=== PATIENT | female | born 1960 | race Two or more races ===

== ENCOUNTER 2022-02-13 12:10 | Emergency (ER) | payer MEDICARE ==
[~2022-02-13] VITALS: Ht 162.6 cm; Wt 86.0 kg
[2022-02-13 12:26] VITALS: BP 108/75
--- NOTE | 2022-02-13 13:02 | PHYS DOC ---
Past History Past Medical History: CAD, CHF, Diabetes, Hypertension, UTI Additional Past Medical Histor: Prinzmetal angina (RAYMOND PEREIRA) Past Surgical History: Coronary Bypass Surgery (RAYMOND PEREIRA) Alcohol Use: None (RAYMOND PEREIRA) General Adult EDM: Chief Complaint: PAIN ON URINATION HPI: HPI: Patient is a 61 year old diabetic female who presents with known UTI and vaginal itching. Patient states she is currently undergoing treatment with Cipro for UTI. She reports she has UTIs often, though she is asymptomatic. Patient denies dysuria, hematuria, polyuria, increased urinary frequency. She states that after she uses the bathroom, she has an itching sensation. She has not been treated with antifungals at this point. Patient reports that she has diagnosed with CHF and Prinzmetal angina, both of which are stable. She did notice that her weight was slightly higher today, so she took an additional water pill under advisement of her wan support specialist. Patient states she has been in good communication with her wan support specialist and has no cardiac concerns today. (RAYMOND PEREIRA) Review of Systems: Review of Systems: ROS negative or noncontributory except as mentioned in HPI. (RAYMOND PEREIRA) Current Medications: Current Meds: Current Medications Medications (Trade) Dose Ordered Sig/Anaya Route PRN Reason Start Time Stop Time Status Last Admin Dose Admin Acetaminophen (Tylenol) 1,000 mg 1X ONCE PO 02/13/22 13:15 02/13/22 13:16 DC 02/13/22 13:13 (RAYMOND PEREIRA) Allergies: Allergies: Allergies Coded Allergies Type Severity Reaction Last Updated Verified Iodinated Contrast Media Allergy Unknown 02/13/22 Yes metformin Allergy Unknown 02/13/22 Yes metronidazole Allergy Unknown 02/13/22 Yes morphine Allergy Unknown 02/13/22 Yes oxycodone Allergy Unknown 02/13/22 Yes (RAYMOND PEREIRA) Physical Exam: PE: Constitutional: Well developed, well nourished, no acute distress, non-toxic appearance. HENT: Normocephalic, atraumatic, bilateral external ears normal, nose normal. Eyes: EOMI, conjunctiva normal, no discharge. Neck: Normal range of motion, no stridor. Skin: Warm, dry, no erythema, no rash. Back: No step-off, no tenderness, no CVA tenderness. Extremities: No tenderness, no cyanosis, no clubbing, ROM intact, no edema. Neurologic: Alert and oriented x4, no focal deficits noted. (RAYMOND PEREIRA) Current Patient Data: Labs: Laboratory Tests Test 02/13/22 12:53 Urine Collection Type Unknown Urine Color Yellow Urine Clarity Hazy Urine pH 7.0 Urine Specific [place] 1.015 Urine Protein Neg (NEG-TRACE) Urine Glucose (UA) >=1000 mg/dL (NEG) Urine Ketones (Stick) Neg mg/dL (NEG) Urine Blood Neg (NEG) Urine Nitrite Neg (NEG) Urine Bilirubin Neg (NEG) Urine Urobilinogen Dipstick 0.2 mg/dL (0.2 mg/dL) Urine Leukocyte Esterase Trace (NEG) Urine RBC 3-5 /HPF (0-2) Urine WBC 20-40 /HPF (0-4) Urine Squamous Epithelial Cells Many /LPF Urine Bacteria 0 /HPF (0-FEW) Urine Yeast Present /HPF Vital Signs: Vital Signs Date Time Temp Pulse Resp B/P (MAP) Pulse Ox O2 Delivery O2 Flow Rate FiO2 02/13/22 12:26 98.5 87 16 108/75 (86) 99 Room Air (RAYMOND PEREIRA) Heart Score: C/O Chest Pain: N/A (RAYMOND PEREIRA) Course & Med Decision Making: Course & Med Decision Making Pertinent Labs and Imaging studies reviewed. (See chart for details) (RAYMOND PEREIRA) Dragon Disclaimer: Dragon Disclaimer: This electronic medical record was generated, in whole or in part, using a voice recognition dictation system. (RAYMOND PEREIRA) Attending Co-Sign The patient was seen and interviewed as well as examined at the bedside. The chart was reviewed. The case was discussed. Agree with the plan of care. (STANLEY FLOREZ DO) Departure Departure: Impression: Primary Impression: Infection due to yeast Additional Impression: Hx: UTI (urinary tract infection) Disposition: HOME / SELF CARE / HOMELESS Condition: STABLE Referrals: ADIN HERRERA MD (PCP) Patient Instructions: How to Avoid Diabetes Problems, Urinary Tract Infection, [id number] Additional Instructions: EMERGENCY DEPARTMENT GENERAL DISCHARGE INSTRUCTIONS Thank you for coming to [facility] (ED) today and trusting us with you care. We trust that you had a positive experience in our Emergency Department. If you wish to speak to the department management, you may call the director at [phone]. YOUR FOLLOW UP INSTRUCTIONS ARE FOLLOWS: 1. Follow up with your primary care doctor. If you do not have a primary doc tor, please ask for a resource list of physicians or clinics that may be able to assist you with follow up care. 2. The emergency provider has interpreted your imaging studies, if any were ordered. The radiology reimbursement specialist also reviewed them. If there is a change in the findings, you will be notified in 48 hours when at all possible. 3. If a lab test or culture has been done, your results will be reviewed and you will be notified if you need a change in treatment. 4. Follow instructions verbalized to you and refer to the printouts if needed. ADDITIONAL INSTRUCTIONS AND INFORMATION: 1. Your care today has been supervised by a physician who is specially trained in emergency care. Many problems require more than one evaluation for a complete diagnosis and treatment. We recommend that you schedule your follow up appointment as recommended to ensure complete treatment of you illness or injury. If you are unable to obtain follow up care and continue to have a problem, or if your condition worsens, we recommend that you return to the ED. 2. We are not able to safely determine your condition over the phone nor are we able to give sound medical advice over the phone. For these safety reasons, if you call for medical advice we will ask you to come to the ED for further evaluation. 3. If you have any questions regarding these discharge instructions please call the ED at [phone]. SAFETY INFORMATION: In the interest of safety, wellness, and injury prevention; we encourage you to wear your seat belt, if you smoke; quite smoking, and we encourage family to use a protective helmet for bicycling and other sporting events that present an increased risk for head injury. IF YOUR SYMPTOMS WORSEN OR NEW SYMPTOMS DEVELOP, OR YOU HAVE CONCERNS ABOUT YOUR CONDITION; OR IF YOUR CONDITION WORSENS WHILE YOU ARE WAITING FOR YOUR FOLLOW UP APPOINTMENT; EITHER CONTACT YOUR PRIMARY CARE DOCTOR, THE PHYSICIAN WHOSE NAME AND NUMBER YOU WERE GIVEN, OR RETURN TO THE ED IMMEDIATELY. Scripts Fluconazole (FLUCONAZOLE) 200 Mg Tablet 1 TAB PO DAILY for candiduria for 14 Days, #14 TAB Prov: RAYMOND PEREIRA 02/13/22 RAYMOND PEREIRA Feb 13, 2022 13:02 STANLEY FLOREZ DO Feb 15, 2022 18:34
[2022-02-13] MEDS ORDERED: ACETAMINOPHEN 500 MG TABLET PO ONE (13:15)
[2022-02-13] MEDS ORDERED: FLUC200T6 PO (13:17)
[2022-02-13 13:37] LABS: CLARITY,URINE HAZY; COLOR,URINE YELLOW; GLUCOSE,URINE >=1000 mg/dL (NEG); NITRITE,URINE NEG (NEG); UROBILINOGEN,URINE 0.2 mg/dL (0.2 mg/dL); WBC,URINE 20-40 /HPF (0-4)
[2022-02-13 13:38] LABS: BACTERIA,URINE 0 /HPF (0-FEW); SQUAMOUS EPITHELIAL CELL,UR MANY /LPF; YEAST,URINE PRESENT /HPF
== END 2022-02-13 13:54 | disposition home or self-care (01) ==
LOC: ER 12:10
DX: B37.89 Other sites of candidiasis (principal); E11.9 Type 2 diabetes mellitus without complications; I25.10 Atherosclerotic heart disease of native coronary artery without angina pectoris; I11.0 Hypertensive heart disease with heart failure; I50.9 Heart failure, unspecified; I25.810 Atherosclerosis of coronary artery bypass graft(s) without angina pectoris; Z87.440 Personal history of urinary (tract) infections; Z91.041 Radiographic dye allergy status; Z88.5 Allergy status to narcotic agent; Z88.8 Allergy status to other drugs, medicaments and biological substances
CPT/HCPCS: 81001; 87086; 99282